=== PATIENT | female | born 1935 | race Caucasian/White ===

== ENCOUNTER 2016-07-20 20:33 | Emergency (ER) | payer OTHER ==
[~2016-07-20] VITALS: Ht 162.6 cm; Wt 81.8 kg
[2016-07-20] MEDS ORDERED: SODIUM CHLORIDE 0.9% 1,000 ML IV ONE (21:01)
[2016-07-20] MEDS ORDERED: KETOROLAC 30MG/ML VIAL IV STA (21:01)
[2016-07-20] MEDS ORDERED: ONDANSETRON HCL 4MG/2ML VIAL IV STA (21:01)
[2016-07-20 21:42] LABS: CHLORIDE 108 mEq/L (98-107)
[2016-07-20 21:43] LABS: HEMATOCRIT. 41.1 % (36.0-48.0); HEMOGLOBIN. 13.6 g/dL (12.0-16.0); MEAN CORPUSCULAR HEMOGLOBIN 27.4 pg (28.0-32.0); MEAN CORPUSCULAR VOLUME 82.9 fL (81.0-99.0); MEAN PLATELET VOLUME 8.1 fl (7.4-10.4); PLATELET 198 x1000/uL (130-400); RED BLOOD CELL COUNT 4.95 mill/uL (4.2-5.4); RED CELL DISTRIBUTION WIDTH 13.9 % (11.6-14.6)
[2016-07-20 21:45] LABS: INR 1.1; PROTHROMBIN TIME 11.4 sec
[2016-07-20 21:50] LABS: CARBON DIOXIDE 24 mEq/L (21-32)
[2016-07-20 22:27] LABS: PLATELET ESTIMATE NORMAL
[2016-07-21] MEDS ORDERED: LEVOFLOXACIN 750MG PREMIX 150 ML IV ONE
[2016-07-21] MEDS ORDERED: METRONIDAZOLE 500 MG PREMIX 100 ML IV ONE
[2016-07-21] MEDS ORDERED: METRONIDAZOLE 500 MG PREMIX 100 ML IV NR (00:25)
[2016-07-21] MEDS ORDERED: MORPHINE SULFATE 4 MG/ML CPJ (NOT FOR IM USE) IV ONE (00:45)
[2016-07-21 01:51] VITALS: BP 128/70
== END 2016-07-21 06:00 | disposition short-term general hospital (02) ==
LOC: ER 22:03
DX: R10.31 Right lower quadrant pain (principal); R11.2 Nausea with vomiting, unspecified; Z88.0 Allergy status to penicillin; Z88.6 Allergy status to analgesic agent; Z88.8 Allergy status to other drugs, medicaments and biological substances
CPT/HCPCS: 36415; 71010; 74176; 80053; 83690; 85025; 85610; 93005; 96361; 96365; 96367; 96375; 99285; J1885; J1956; J2270; J2405; J3490; J7030